=== PATIENT | female | born 1990 | race Caucasian/White ===

== ENCOUNTER → 2020-01-16 | Outpatient (CLI) | payer MEDICAID ==
--- NOTE | 2020-01-16 14:51 | FL ---
EXAMINATION TYPE: FL hysterosalpingography DATE OF EXAM: 01/16/2020 HISTORY: Infertility. TECHNIQUE/FINDINGS: 22 seconds of fluoroscopy time was utilized with 7 fluoroscopic images saved. Informed consent was obtained and all the patient's questions were answered. Pulmonary preprocedura l timeout was performed. A speculum was introduced and the external cervical os was localize. Hyster osalpingography catheter was introduced into the uterus and balloon insufflation device deployed. Ap proximately 4 cc of nonionic contrast was injected in a retrograde manner. The uterus has a normal size shape and appearance. No persistent uterine filling defects are seen. Both fallopian tubes fill with contrast normally. There is spill of contrast into the peritoneal cav ity bilaterally left greater than right. IMPRESSION: Normal hysterosalpingogram with bilateral spill of contrast into the peritoneal cavity.
== END | disposition home or self-care (01) ==
LOC: RADUSWWP 13:19
DX: N97.9 Female infertility, unspecified (principal)
CPT/HCPCS: 58340; 74740; Q9967